=== PATIENT | female | born 1990 | race Caucasian/White ===

== ENCOUNTER 2018-03-06 05:59 | Inpatient (IN) | payer OTHER ==
[2018-03-05 14:56] LABS: ABS Basophils 0 10^3/ul (0-0.2); ABS Eosinophils 0.1 10^3/ul (0-0.6); ABS Lymphocytes 1.5 10^3/ul (1.0-4.8); ABS Monocytes 0.6 10^3/ul (0-0.8); ABS Neutrophils 6.5 10^3/ul (1.5-7.7); ABS Nucleated RBC 0 10^3/ul; Eosinophil % 0.6 % (0-6); Hematocrit 31 % (35-47); Hemoglobin 10.9 g/dl (12.0-16.0); Lymphocyte % 17.8 % (25-47); Mean Corpuscular HGB Conc 35 g/dl (31-36); Mean Corpuscular Hemoglobin 30 pg (27-31); Mean Corpuscular Volume 87 fL (80-97); Mean Platelet Volume 8.1 um3 (7.4-10.4); Nucleated Red Blood Cells % 0; Platelet Count 287 10^3/ul (150-450); Red Blood Count 3.63 10^6/ul (4.0-5.4); Red Cell Distribution Width 15 % (10.5-15); White Blood Count 8.7 10^3/ul (3.5-10.8)
[~2018-03-06 05:59] MED LIST: Buffered Lidocaine 0.9% SYRIN* 5 ML/SYR SYRINGE INTRADERM ONE
[2018-03-06] MEDS ORDERED: Sodium Citrate/Citric Acid* 15 ML UDC PO ONE (06:00)
[2018-03-06] MEDS ORDERED: Ondansetron INJ* 2 MG/ML VIAL IV ONE (06:00)
[2018-03-06] MEDS ORDERED: Metoclopramide IV* 5 MG/ML 2 ML VIAL IV SLOW PU ONE (06:00)
[2018-03-06] MEDS ORDERED: ceFOXitin(*) 2 GM in NS 0.9% 100 ML* 100 ML IVPB ONE (06:39)
--- NOTE | 2018-03-06 06:47 | HP ---
General Information - General Information Maternal Age: 27 Grav: 3 Para: 1 SAB: 0 IEA: 1 Estimated Due Date: 03/06/18 Determined By: Early Ultrasound Gestational Age in Weeks and Days: 40 Weeks and 0 Days Maternal Blood Type and Rh: O Negative - Results this Serology/RPR Result: Non-Reactive Rubella Result: Immune HBsAg Result: Negative HIV Result: Negative GBS Culture Result: Negative Past Medical History Delivery History: Hx C/Section, See Records Pertinent Past Medical History: See Records Pertinent Past Surgical History: See Records Pertinent Family History: See Records - HTN, Depression, Stroke, Aneurysm, High Cholesterol Review of Systems Constitutional: Comfortable CV Complaint: No Respiratory: Shortness of Breath: No Gastrointestinal: No Nausea/Vomiting Genitourinary: No Dysuria, No Bleeding, No Leaking Fluid Musculoskeletal: No Complaint Neurological: No Headache Movement: Normal Exam Allergies/Adverse Reactions: Allergies acetaminophen Allergy (Mild, Verified 03/05/18 14:55) Nausea pt states tylenol makes her nauseous latex Allergy (Verified 03/06/18 06:13) Nausea Vital Signs 03/06/18 06:14 Temperature 98.2 F Pulse Rate 82 Respiratory 16 Rate Blood Pressure 119/74 (mmHg) O2 Sat by Pulse 99 Oximetry Lab Values - Entire Visit: Laboratory Tests 03/05/18 03/05/18 13:50 13:50 WBC 8.7 RBC 3.63 L Hgb 10.9 L Hct 31 L MCV 87 MCH 30 MCHC 35 RDW 15 Plt Count 287 MPV 8.1 Neut % (Auto) 75.0 Lymph % (Auto) 17.8 L [place] % (Auto) 6.3 Eos % (Auto) 0.6 Baso % (Auto) 0.3 Absolute Neuts (auto) 6.5 Absolute Lymphs (auto) 1.5 Absolute Monos (auto) 0.6 Absolute Eos (auto) 0.1 Absolute Basos (auto) 0 Absolute Nucleated RBC 0 Nucleated RBC % 0 Blood Type O Negative Antibody Screen Negative - Measurements Height: 5 ft Weight: 219 lb Weight in lbs: 219 Body Mass Index (BMI): 42.7 Pre- Weight: 192 lb Weight Gained This : 27 lbs and 0 ozs - Exam Abdomen: No Upper Quadrant Pain Breast: Breast Exam Deferred CVA: No CVA Tenderness Extremities: No Edema Heart: Normal Rhythm/Heart Sounds HEENT: No Significant Findings EFM Findings - External Monitor Findings External Monitor Findings: Accelerations Present Contractions: None Assessment/Plan - Reason for Visit Reason for Visit: Term , history of prior Section, desires permanent sterilization and repeat . - Obstetrical Risk Factors Obstetrical Risk Factors: Obesity - Plan Plan: Expedite C/S Delivery, Antibiotic Prophylaxis - Date/Time of Admission Date of Admission: 03/06/18 Time of Admission: 07:00
[2018-03-06] MEDS ORDERED: OXYTOCIN* 10 UNITS/ML 1 ML VIAL ONE ×2 (07:11→08:31)
[2018-03-06] MEDS ORDERED: EPHEDrine (Pressors)* 50 MG/ML VIAL ONE (07:11)
[2018-03-06] MEDS ORDERED: fentaNYL* 50 MCG/ML 2 ML VIAL (100 MCG VIAL) ONE (07:13)
[2018-03-06] MEDS ORDERED: Bupivacaine-MPF SPINAL* 7.5 MG/2 ML AMP ONE (07:13)
[2018-03-06] MEDS ORDERED: Morphine PF AMP (0.5MG/ML)* 5 MG/10 ML AMP ONE (07:39)
[2018-03-06] MEDS ORDERED: Ketorolac INJ* 30 MG/ML 1 ML VIAL ONE (08:31)
[2018-03-06] MEDS ORDERED: Carboprost Tromethamine* 250 MCG INJ ONE (08:43)
[2018-03-06] MEDS ORDERED: diPHENhydraMINE IV* 50 MG/ML 1 ml VIAL (BENADRYL) IV PRN ×2 (09:01→09:03)
[2018-03-06] MEDS ORDERED: oxyCODONE TAB* 5 MG TAB PO PRN ×2 (09:01→09:03)
[2018-03-06] MEDS ORDERED: HYDROmorphone INJ* 1 MG/ML CARPUJECT SYRINGE IV PRN (09:01)
[2018-03-06] MEDS ORDERED: PROCHLORPERAZINE INJ 5 MG/ML 2 ML VIAL IV PRN ×2 (09:01→09:03)
[2018-03-06] MEDS ORDERED: fentaNYL* 50 MCG/ML 2 ML VIAL (100 MCG VIAL) IV PRN (09:01)
[2018-03-06] MEDS ORDERED: Scopolamine 1.5 mg* PATCH TRANSDERM PRN ×2 (09:01→09:03)
[2018-03-06] MEDS ORDERED: Naloxone* 0.4 MG/ML 1 ML VIAL IV PRN ×2 (09:01→09:03)
[2018-03-06] MEDS ORDERED: Ondansetron INJ* 2 MG/ML VIAL IV PRN (09:03)
[2018-03-06] MEDS: Ketorolac INJ* 30 MG/ML 1 ML VIAL IV PRN ×3 (09:30→21:45)
[2018-03-06] MEDS ORDERED: Dibucaine 1% 28.35 GM TUBE PR PRN (09:34)
[2018-03-06] MEDS ORDERED: Glycerin ADULT SUPP PR PRN (09:34)
[2018-03-06] MEDS ORDERED: Carboprost Tromethamine* 250 MCG INJ IM ONE (09:34)
[2018-03-06] MEDS ORDERED: Zolpidem TAB* 5 MG PO PRN (09:34)
[2018-03-06] MEDS ORDERED: Witch Hazel PAD* JAR TOPICAL PRN (09:34)
[2018-03-06] MEDS ORDERED: Ibuprofen TAB* 600 MG PO PRN (09:34)
[2018-03-06] MEDS: Simethicone TAB* 80 MG TAB.CHEW PO SCH ×3 (12:16→21:45)
[2018-03-06] MEDS: oxyCODONE TAB* 5 MG TAB PO PRN ×2 (12:17→19:39)
[2018-03-06] MEDS: Docusate CAP* 100 MG PO SCH ×2 (15:31→21:45)
[2018-03-07] MEDS: Ketorolac INJ* 30 MG/ML 1 ML VIAL IV PRN (03:47)
[2018-03-07] MEDS: oxyCODONE TAB* 5 MG TAB PO PRN ×4 (06:46→19:42)
[2018-03-07 07:14] LABS: ABS Basophils 0 10^3/ul (0-0.2); ABS Eosinophils 0.1 10^3/ul (0-0.6); ABS Lymphocytes 1.3 10^3/ul (1.0-4.8); ABS Monocytes 0.5 10^3/ul (0-0.8); ABS Nucleated RBC 0 10^3/ul; Eosinophil % 0.9 % (0-6); Hematocrit 22 % (35-47); Hemoglobin 7.7 g/dl (12.0-16.0); Lymphocyte % 16.1 % (25-47); Mean Corpuscular HGB Conc 35 g/dl (31-36); Mean Corpuscular Hemoglobin 30 pg (27-31); Mean Corpuscular Volume 87 fL (80-97); Mean Platelet Volume 7.9 um3 (7.4-10.4); Nucleated Red Blood Cells % 0; Platelet Count 200 10^3/ul (150-450); Red Blood Count 2.55 10^6/ul (4.0-5.4); Red Cell Distribution Width 15 % (10.5-15); White Blood Count 7.9 10^3/ul (3.5-10.8)
[2018-03-07] MEDS: Simethicone TAB* 80 MG TAB.CHEW PO SCH ×3 (09:07→19:42)
[2018-03-07] MEDS: Ferrous Gluconate TAB* 324 MG TAB PO SCH ×2 (09:07→19:42)
[2018-03-07] MEDS: Docusate CAP* 100 MG PO SCH ×3 (09:07→19:42)
[2018-03-07] MEDS: Ibuprofen TAB* 600 MG PO PRN ×2 (10:45→16:48)
[2018-03-07] MEDS ORDERED: oxyCODONE TAB* 5 MG TAB ONE (11:28)
--- NOTE | 2018-03-07 13:48 | OP ---
DATE OF OPERATION: 03/06/18 - ROOM #115 DATE OF : 88 SURGEON: Alonzo Christianson MD TREE DOCTOR: Valeria Zuñiga MD ANESTHESIA: Spinal. PRE-OP DIAGNOSIS: Intrauterine at 40 weeks with a prior section. The patient desires sterilization and repeat section. POST-OP DIAGNOSIS: Intrauterine at 40 weeks with a prior section. The patient desires sterilization and repeat section. OPERATIVE PROCEDURE: Repeat low transverse section and bilateral fimbriectomy. ESTIMATED BLOOD LOSS: 700 cc. SPECIMENS SENT TO PATHOLOGY: Bilateral fimbria. FLUIDS: She received 1 L of IV crystalloid fluid. URINE OUTPUT: Clear. FINDINGS: Delivery of a viable male over clear fluid with a nuchal cord x1, weighing 8 pounds 15 ounces with Apgars of 8 and 9. The placenta was grossly intact with a 3-vessel cord noted. The uterus, adnexa, bowel, and bladder were all within normal limits, and there were no complications DESCRIPTION OF PROCEDURE: The patient was taken to the operating room where she was identified. She was placed on the operating room table where a spinal anesthetic was obtained without difficulty. She was then placed in the supine position with a leftward tilt, prepped and draped in the normal sterile fashion. A Pfannenstiel skin incision was then made with a knife and carried through to the underlying layer of fascia. The fascia was then nicked in the midline and extended laterally with curved Forrest scissors. The fascia was then grasped superiorly and inferiorly with Dariel clamps and dissected off sharply from the rectus muscle. The rectus muscle was in the midline bluntly. The peritoneum was identified, grasped with pickups, and entered sharply with Metzenbaum scissors and extended superiorly and inferiorly bluntly. At this point, we proceeded to use a retractor to the patient's abdomen. A bladder flap was created using Metzenbaum scissors over which a bladder blade was then reinserted. A low transverse section was made with a knife, extended laterally with bandage scissors. The amniotic sac was ruptured. The fluid was noted to be clear. The 's head was then grasped and delivered atraumatically with the assistance of vacuum. The nose and mouth were suctioned. The rest of the 's body was then delivered. Nuchal cord x1 was reduced prior to the delivery of rest of the infant's body. The cord was clamped and cut, the was handed off to the awaiting buffer copper. Cord bloods were obtained. The placenta was removed manually. The uterus was then exteriorized, cleared of all clot and debris using moist laparotomy sponges. The uterine incision was then closed using 0 Polysorb suture in a running locked fashion with a second imbricating layer of 0 Polysorb suture with good hemostasis noted. At this point, attention was then brought on to the patient's fallopian tubes where bilateral fimbriectomy was performed in the usual fashion using 3-0 Polysorb sutures. Portions of the right and left fimbria were sent to Pathology. At this point, the uterus was returned into the patient's abdomen. The gutters were then cleared of all clot and debris using moist laparotomy sponges. All the sponges and instruments were removed from the patient's abdomen. The peritoneum was then closed using 3-0 Polysorb suture in a running fashion. The fascia was closed using 0 Polysorb suture in a running fashion. The subcutaneous layer of the Jesus's fascia was approximated using 3-0 Polysorb suture and with interrupted stitches, and the skin was closed with a 4-0 Monocryl subcuticular stitch. The patient tolerated the procedure well. Sponge, lap, and needle counts were correct x2. She was then transferred to the recovery room area in stable condition. [id number]/[facility] #: [id number] A.[facility]. [facility]IAL HOSPITALJoel
[2018-03-07] MEDS ORDERED: Zolpidem TAB* 5 MG PO PRN (21:00)
[2018-03-08] MEDS: Ibuprofen TAB* 600 MG PO PRN ×4 (00:43→19:48)
[2018-03-08] MEDS: oxyCODONE TAB* 5 MG TAB PO PRN ×6 (00:44→21:27)
[2018-03-08] MEDS: Simethicone TAB* 80 MG TAB.CHEW PO SCH ×5 (04:51→22:07)
[2018-03-08] MEDS: Docusate CAP* 100 MG PO SCH ×3 (08:45→21:27)
[2018-03-08] MEDS: Ferrous Gluconate TAB* 324 MG TAB PO SCH ×2 (08:47→21:27)
[2018-03-08 12:29] LABS: Hematocrit 25 % (35-47); Hemoglobin 8.5 g/dl (12.0-16.0)
--- NOTE | 2018-03-08 18:45 | PTEDU ---
Patient Name: SUAD SPENCE SUAD SPENCE selected video: BBOB: Bonding Through Infant Massage to view on 03/08/2018 at 6:44:3 8 PM from [id number]
[2018-03-09] MEDS: oxyCODONE TAB* 5 MG TAB PO PRN ×3 (02:11→09:58)
[2018-03-09] MEDS: Ibuprofen TAB* 600 MG PO PRN ×2 (02:44→08:56)
[2018-03-09 07:53] VITALS: BP 123/67
[2018-03-09] MEDS: Ferrous Gluconate TAB* 324 MG TAB PO SCH (08:22)
[2018-03-09] MEDS: Simethicone TAB* 80 MG TAB.CHEW PO SCH (08:22)
[2018-03-09] MEDS: Docusate CAP* 100 MG PO SCH (08:22)
[2018-03-09] MEDS ORDERED: Scopolamine PATCH Remove* 1 NOTE MISC PATCH OFF ONE (09:03)
[2018-03-09] MEDS ORDERED: Scopolamine PATCH Remove* 1 NOTE MISC PATCH OFF PRN (09:06)
== END 2018-03-09 10:02 | disposition home or self-care (01) | DRG 540 ==
LOC: MCHOB 05:59
PROVIDERS: ADMIT Obstetrics & Gynecology; ATTEND Obstetrics & Gynecology
PROC: 4A1HX4Z Monitoring of Products of Conception, Cardiac Electrical Activity, External Approach (ICD-10-PCS; 2018-03-06)
PROC: 0UB70ZZ Excision of Bilateral Fallopian Tubes, Open Approach (ICD-10-PCS; 2018-03-06)
PROC: 10D00Z1 Extraction of Products of Conception, Low, Open Approach (ICD-10-PCS; principal; 2018-03-06 07:45)
DX: O34.211 Maternal care for low transverse scar from previous cesarean delivery (principal); O98.52 Other viral diseases complicating childbirth; B00.89 Other herpesviral infection; Z68.41 Body mass index [BMI] 40.0-44.9, adult; O99.214 Obesity complicating childbirth; O99.334 Smoking (tobacco) complicating childbirth; F17.200 Nicotine dependence, unspecified, uncomplicated; O69.81X0 Labor and delivery complicated by cord around neck, without compression, not applicable or unspecified; O99.02 Anemia complicating childbirth; Z82.49 Family history of ischemic heart disease and other diseases of the circulatory system; Z81.8 Family history of other mental and behavioral disorders; Z82.3 Family history of stroke; Z88.5 Allergy status to narcotic agent; Z91.040 Latex allergy status; Z3A.40 40 weeks gestation of pregnancy; Z37.0 Single live birth; Z30.2 Encounter for sterilization; Z87.440 Personal history of urinary (tract) infections
CPT/HCPCS: 36415; 76815; 85014; 85018; 85025; 86850; 86900; 86901; 88302; A9270-GY; J0694; J1885; J2405; J2590; J2765; J3010